=== PATIENT | male | born 1980 | race Caucasian/White ===

== ENCOUNTER 2017-11-11 21:51 | Emergency (ER) | payer MEDICAID ==
[~2017-11-11] VITALS: Ht 175.3 cm; Wt 90.9 kg
[2017-11-12] MEDS ORDERED: DiphenhydrAMINE HCL 50 MG/ML VIAL IM ONE (00:15)
[2017-11-12] MEDS ORDERED: PredniSONE 20 MG TABLET PO ONE (00:15)
[2017-11-12 00:23] VITALS: BP 127/83
== END 2017-11-12 00:27 | disposition home or self-care (01) ==
LOC: EMS 21:53
DX: L50.0 Allergic urticaria (principal); F17.200 Nicotine dependence, unspecified, uncomplicated; F12.90 Cannabis use, unspecified, uncomplicated
CPT/HCPCS: 96372; 99283; J1200; J7512

== ENCOUNTER 2017-12-14 09:57 | Emergency (ER) | payer SELFPAY ==
[~2017-12-14] VITALS: Ht 175.3 cm; Wt 86.4 kg
[2017-12-14] MEDS ORDERED: KETOROLAC TROMETHAMINE 60 MG/2 ML VIAL IM ONE (12:15)
[2017-12-14] MEDS ORDERED: DIAZEPAM 5 MG TABLET PO ONE (12:15)
[2017-12-14 12:54] VITALS: BP 115/72
== END 2017-12-14 12:55 | disposition home or self-care (01) ==
LOC: EMS 09:57
DX: S39.012A Strain of muscle, fascia and tendon of lower back, initial encounter (principal); F12.90 Cannabis use, unspecified, uncomplicated; F17.210 Nicotine dependence, cigarettes, uncomplicated; X50.0XXA Overexertion from strenuous movement or load, initial encounter; Y93.89 Activity, other specified; Y92.89 Other specified places as the place of occurrence of the external cause; Y99.8 Other external cause status
CPT/HCPCS: 96372; 99283; J1885

== ENCOUNTER 2018-01-03 15:01 | Emergency (ER) | payer SELFPAY ==
[~2018-01-03] VITALS: Ht 175.3 cm; Wt 90.9 kg
[2018-01-03 15:31] VITALS: BP 130/90
[2018-01-03] MEDS ORDERED: BACITRACIN 0.9 GM PACKET OINTMENT TP ONE (16:00)
[2018-01-03] MEDS ORDERED: PERTUSS(ACELL),DIPH,TET VAC/PF 0.5 ML VIAL IM ONE (16:00)
[2018-01-03] MEDS ORDERED: LIDOCAINE/PF 1% 5 ML VIAL INJ ONE (16:00)
[2018-01-03] MEDS ORDERED: IBUPROFEN 600 MG TABLET PO ONE (16:00)
== END 2018-01-03 16:51 | disposition home or self-care (01) ==
LOC: EMS 15:02
DX: S61.412A Laceration without foreign body of left hand, initial encounter (principal); F17.210 Nicotine dependence, cigarettes, uncomplicated; F12.90 Cannabis use, unspecified, uncomplicated; W27.0XXA Contact with workbench tool, initial encounter; Y93.89 Activity, other specified; Y92.69 Other specified industrial and construction area as the place of occurrence of the external cause; Y99.0 Civilian activity done for income or pay
CPT/HCPCS: 12001; 90471; 90715; 99283; 99406; J3490